=== PATIENT | female | born 1985 | race Hispanic/Latino ===

== ENCOUNTER 2016-06-09 08:11 | Emergency (ER) | payer OTHER ==
[~2016-06-09] VITALS: Ht 154.9 cm; Wt 67.1 kg
[~2016-06-09 08:11] MED LIST: PREDNISONE 20MG20 MG PO
--- NOTE | 2016-06-09 08:26 | ED GI/GU/ABDOMINAL COMPLAINT ---
History of Present Illness General Chief Complaint: Nausea, Vomiting, Diarrhea Stated Complaint: +N/V SINCE LAST NIGHT Source: patient Exam Limitations: no limitations Vital Signs & Intake/Output Vital Signs & Intake/Output Vital Signs Date Time Temp Pulse Resp B/P Pulse O2 O2 Flow FiO2 Ox Delivery Rate 06/09 1037 97.8 76 20 114/78 98 Room Air Room Air 06/09 0815 97.4 90 20 106/68 99 Room Air Allergies Coded Allergies: shellfish derived (Severe, RASH, HIVES 08/07/15) Uncoded Allergies: PETS (06/13/14) SEASONAL (06/13/14) Reconcile Medications Hyoscyamine (Levsin) 0.125 MG TABLET 1 TAB PO Q4 PRN abdominal spasms Ondansetron (Zofran Odt) 4 MG TAB.RAPDIS 1 TAB SL TID PRN nausea Triage Note: PT TO ED C/O N/V/D SINCE LAST NIGHT. C/O ABD PAIN. PT STATES SHE WAS HERE WITH HER SON OVER THE WEEKEND FOR THE SAME THING. Triage Nurses Notes Reviewed? yes ? n Is pt currently ? No Onset: Gradual Duration: hour(s): (8) Timing: remote history Quality/Severity: cramping Severity Numbers: 8 Location: generalized abdomen Radiation: no radiation Activities at Onset: none Prior Abdominal Problems: similar symptoms Past Sexual History: Unobtainable at this time No Modifying Factors: none HPI: Patient is a 30-year-old female presenting to the emergency department she complained of nausea vomiting and diarrhea that started last night around midnight. She reports several episodes of emesis that was nonbloody and ambulates. Unsure how many times. She reports 2 episodes of loose watery brown stool. Tactile chills, no fevers. Her son was sick with similar symptoms over the weekend. Denies chest pain or shortness of breath. No upper respiratory symptoms. Denies taking anything at home to help with symptoms. Her she still nauseous. No recent travel. Denies chance of and she had tubal ligation in the past. (ANNE ROSA,STACEY) Past History Travel History Traveled to [place] past 21 day No Medical History Any Pertinent Medical History? see below for history Neurological: NONE EENT: NONE Cardiovascular: NONE Respiratory: NONE Gastrointestinal: NONE Hepatic: NONE Renal: NONE Musculoskeletal: NONE Psychiatric: NONE Endocrine: NONE Blood Disorders: NONE Cancer(s): NONE HUMAN RESOURCE ADVISER/Reproductive: NONE Surgical History Surgical History: non-contributory Psychosocial History What is your primary language Libyan Tobacco Use: Current Not Daily ETOH Use: denies use Illicit Drug Use: denies illicit drug use Family History Hx Contributory? No (STACEY COLEY) Review of Systems Review of Systems Constitutional: Reports: malaise. Comments Review of systems: See HPI, All other systems negative. Constitutional, no fever or weight loss HEENT: No visual changes no sore throat no congestion Cardiovascular: No chest pain ,palpitation , orthopnea or ankle swelling Skin, no jaundice no rashes Respiratory: No dyspnea cough sputum or hemoptysis GI: Positive nausea, vomiting, diarrhea : No dysuria No hematuria Muscle skeletal: no back pain, no neck pain, Neurologic: No numbness no confusion Psych: No stress anxiety or depression,. Heme/endocrine: No bruising no bleeding no polyuria or polydipsia Immunology: No splenectomy or history of AIDS (STACEY COLEY) Physical Exam Physical Exam General Appearance: well developed/nourished, no apparent distress, alert, awake , comfortable Gastrointestinal: normal bowel sounds, soft, tenderness Comments: Well-developed well-nourished person in no acute distress HEENT: Pupils equally round and reactive to light and accommodation. Nose is atraumatic. External auditory canal and Tympanic membranes clear. Pharynx normal. No swelling or edema. Moist oral mucosa. Neck: Supple, no lymphadenopathy, normal range of motion without pain or tenderness Back: Nontender, no CVA tenderness. Cardiovascular: Regular rate and rhythms no murmurs rubs or gallops, normal JVP Respiratory: Chest nontender. No respiratory distress.breath sounds clear to auscultation bilaterally Abdomen: Soft, diffusely tender to palpation, no rebound or guarding nondistended, no appreciable organomegaly. Hyperactive bowel sounds. No ascites Extremity: No edema Neuro: Alert oriented x3 Skin: No appreciable rash on exposed skin, skin is warm and dry. Psych: Mood and affect is normal, memory and judgment is normal. Core Measures ACS in differential dx? No Severe Sepsis Present: No Septic Shock Present: No (STACEY COLEY) Progress Differential Diagnosis: appendicitis, biliary colic, cholecystitis, diverticulitis, gastritis, inflamm bowel dis, UTI/pyelo, pancreatitis Plan of Care: Orders Procedure Date/time Status LIPASE 06/09 818 Complete COMPREHENSIVE METABOLIC PANEL 06/09 818 Complete CBC WITHOUT DIFFERENTIAL 06/09 818 Complete AMYLASE 06/09 818 Complete Laboratory Tests 06/09/16 0830: Anion Gap 9, Estimated GFR > 60, BUN/Creatinine Ratio 22.9, Glucose 95, Calcium 8.8, Total Bilirubin 1.2, AST 78 H, ALT 92 H, Alkaline Phosphatase 58, Total Protein 6.7, Albumin 3.8, Globulin 2.9, Albumin/Globulin Ratio 1.3, Amylase 63, Lipase 102, CBC w Diff NO MAN DIFF REQ, RBC 4.47, MCV 90.8, MCH 30.8, RDW 14.1, MPV 7.9, Gran % 90.2 H, Lymphocytes % 5.6 L, Monocytes % 3.8, Eosinophils % 0.3, Basophils % 0.1, Absolute Granulocytes 9.3 H, Absolute Lymphocytes 0.6 L, Absolute Monocytes 0.4, Absolute Eosinophils 0, Absolute Basophils 0, PUBS MCHC 33.9 06/09/16818: Urine Test Cancelled Initial ED EKG: none Comments: On arrival patient is afebrile in no acute distress. IV fluids initiated. Patient reports similar symptoms and her son over the weekend. CBC, CMP, amylase and lipase ordered. No chance of as patient has had tubal ligation. Patient feeling much better after Zofran and Toradol. IV fluids are finished infusing. Patient was informed of all laboratory results. Patient follow up PCP. Sent home with Jamar. (STACEY COLEY) Departure Departure Time of Disposition: 926 Disposition: HOME OR SELF CARE Condition: Stable Clinical Impression Primary Impression: Abdominal pain Qualifiers: Abdominal location: generalized Qualified Code: R10.84 - Generalized abdominal pain Secondary Impressions: Nausea and vomiting Qualifiers: Vomiting type: unspecified Vomiting Intractability: non-intractable Qualified Code: R11.2 - Nausea with vomiting, unspecified Referrals: WILLIS DAWSON (PCP/Family) Referred to [facility] as new patient No Additional Instructions: Follow-up with her primary care physician, call to make appt. Take Zofran as prescribed for nausea. Take Levsin as prescribed abdominal discomfort. Increase fluids. Return for worsening symptoms or concerns. Departure Forms: Customer Survey D/C INS-APPENDICITIS EXCLUSION General Discharge Information Prescriptions: Current Visit Scripts Hyoscyamine (Levsin) 1 TAB PO Q4 PRN abdominal spasms #40 TAB Ondansetron (Zofran Odt) 1 TAB SL TID PRN nausea #20 TAB (STACEY COLEY) PA/RUBBER GOODS REPAIRER Co-Sign Statement Statement: ED Attending supervision documentation- [] I saw and evaluated the patient. I have also reviewed all the pertinent lab results and diagnostic results. I agree with the findings and the plan of care as documented in the PA's/RUBBER GOODS REPAIRER's documentation. [x] I have reviewed the ED Record and agree with the PA's/RUBBER GOODS REPAIRER's documentation. [] Additions or exceptions (if any) to the PAs/RUBBER GOODS REPAIRER's note and plan are summarized below: [] (TRACIE VALE DO
[2016-06-09 08:53] LABS: ABSOLUTE BASOPHIL COUNT 0 /CUMM (0.0-0.2); ABSOLUTE EOSINOPHIL COUNT 0 /CUMM (0.0-0.7); ABSOLUTE GRANULOCYTE CT 9.3 /CUMM (1.4-6.5); ABSOLUTE LYMPH COUNT 0.6 /CUMM (1.2-3.4); ABSOLUTE MONOCYTE COUNT 0.4 /CUMM (0.10-0.60); BASOPHIL % 0.1 % (0.0-2.0); EOSINOPHIL % 0.3 % (0-5); GRANULOCYTE % 90.2 % (42.2-75.2); HEMATOCRIT 40.6 % (37-47); MEAN CORPUSCULAR HGB 30.8 PG (27.0-31.0); MEAN CORPUSCULAR HGB CONC 33.9 G/DL (33.0-37.0); MEAN CORPUSCULAR VOLUME 90.8 FL (81.0-99.0); MEAN PLATELET VOLUME 7.9 FL (7.4-10.4); PLATELET COUNT 239 /CUMM (130-400); RBC DISTRIBUTION WIDTH 14.1 % (11.5-14.5); RED BLOOD CELL CT 4.47 /CUMM (4.20-5.40); WHITE BLOOD CELL COUNT 10.3 /CUMM (4.8-10.8)
[2016-06-09] MEDS ORDERED: LEVSIN0.125 M1 PO (09:05)
[2016-06-09] MEDS ORDERED: ZOFRAN ODT4 M1 SL (09:05)
[2016-06-09 10:37] VITALS: BP 114/78
== END 2016-06-09 10:42 ==
LOC: ERH 08:11
PROVIDERS: Physician Assistant
DX: R10.84 Generalized abdominal pain (principal); R11.2 Nausea with vomiting, unspecified
CPT/HCPCS: 81025; 96374; 96375; J1885; J2405